=== PATIENT | female | born 1950 | race Caucasian/White ===

== ENCOUNTER 2016-10-15 16:08 | Observation (INO) | payer OTHER ==
--- NOTE | ~2016-10-15 | HP ---
History And Physical [place] [address] [facility] [place] [place]. [address] NAME: STAR NG : 50 STATUS : ADM Tasia PAT#: [id number] AGE: 65 ADM/REG DATE : 10/15/16 MR#: [id number] REPORT SERV DATE: 10/15/16 DICTATED BY: CRISS LAMAR DATE: 10/15/16 REPORT STATUS : Draft TRANSCRIBED BY: MODSukhjinder DATE: 10/15/16 DATE OF ADMISSION: 10/15/2016 POINT OF ENTRY: [facility] Emergency Department. CHIEF COMPLAINT: Nausea, vomiting, confusion, headache. HISTORY OF PRESENT ILLNESS: Ms. Ng is a 65-year-old female with history of hypertension, hypothyroidism, qgl-slqcxup-wsfgkvabq diabetes mellitus type 2, as well as chronic kidney disease, stage 2 to stage 3 who presents to the emergency department today with the above- mentioned complaints of headaches, nausea, vomiting, confusion, and generally not feeling well. The patient states that she was outside doing yard work for most of the day yesterday. She took very frequent breaks to rehydrate, but states that she did lose a lot of fluids via perspiration and feels as if she did get overheated. Upon completion of her yard work, she went inside and started to feel sick, described as weakness, some confusion, disorientation, as well as nausea, vomiting, and some headaches. She continued to try to hydrate herself overnight but feels as if her symptoms worsened prompting her presentation to the emergency department. The patient also reports that she does feel that she is having trouble getting some of her words out and trying to communicate and express what she is thinking and wanting to say, but otherwise, denies any blurry vision, slurred speech, weakness, numbness, tingling or facial droop. Initial evaluation in the emergency department for labs notable for sodium level 125. Labs are otherwise unremarkable. Urinalysis is without evidence of infection but does have spec gravity is 1.001. CT of the abdomen and pelvis was unremarkable. CT scan of the brain read is pending at the time of dictation, but per my review shows no acute stroke. The patient was given some IV fluids, antiemetics, and admitted to the Hospitalist Service. REVIEW OF SYSTEMS: Comprehensive system otherwise negative unless listed in history present illness. PREVIOUS MEDICAL HISTORY: 1. Sez-gnemobi-ujxlbcibz diabetes mellitus type 2. 2. Hypertension. 3. Hypothyroidism. 4. History of melanoma, status post resection. 5. Chronic kidney stage 2 to stage 3. Baseline creatinine unknown. PAST SURGICAL HISTORY: 1. Tubal ligation. 2. Abdominal hysterectomy. 3. Cholecystectomy. History And Physical [address] [place]. [address] NAME: STAR NG : 50 STATUS : ADM Tasia PAT#: [id number] AGE: 65 ADM/REG DATE : 10/15/16 MR#: [id number] REPORT SERV DATE: 10/15/16 DICTATED BY: CRISS LAMAR DATE: 10/15/16 REPORT STATUS : Draft TRANSCRIBED BY: DAYANARA DATE: 10/15/16 4. Right hemicolectomy with ileocolonic anastomosis secondary to Hirschsprung disease. ALLERGIES: MORPHINE. HOME MEDICATIONS: 1. Aspirin 81 mg daily. 2. Atorvastatin 10 mg at bedtime. 3. Invokana 100 mg daily. 4. Exenatide 2 mg subcu weekly. 5. Levothyroxine 75 mcg daily. 6. Lisinopril 40 mg at bedtime. 7. Metformin 850 mg b.i.d. SOCIAL HISTORY: Denies any tobacco, alcohol, or illicits. FAMILY MEDICAL HISTORY: Mother with stroke, father with coronary artery disease. She is an only child. LABS AND IMAGIN. White count is 8.5, hemoglobin is 13.5, hematocrit is 38.6, and platelet count 328. 2. Sodium is 125, potassium 4.2, chloride 93, carbon dioxide 25, BUN 11, creatinine 1.00, glucose is 123, calcium is 8.7, protein 7.5, albumin 3.9, bilirubin is 0.4. ALT is 18, AST 15, alkaline phosphatase is 58. 3. Lipase is 358. 4. CPK is 257. Troponin is less than 0.02. 5. Urinalysis: Specific gravity is 1.001. Positive glucose but no evidence of any infection. Her CT scan of the abdomen and pelvis shows a small umbilical hernia. Otherwise, no acute abdominopelvic pathology. 6. EKG, per my review shows right bundle-branch block with normal sinus rhythm, but otherwise, no evidence of any acute ischemia infarction. 7. CT scan of the brain per my review shows no acute stroke or intracranial abnormality but formal Radiology report is pending at the time of dictation. PHYSICAL EXAMINATION: VITAL SIGNS: Temperature is 98.1 degrees Fahrenheit, pulse is 84, respirations 18, saturating 98% on room air, blood pressure 141/76. GENERAL: The patient is awake, alert, in no acute distress. Resting comfortably. She is a well-developed, well-nourished, female. HEENT: Atraumatic and normocephalic. Moist mucous membranes. Pupils are equal, round, reactive to light and accommodation. Extraocular eye movements are intact. No scleral icterus. NECK: No jugular venous distention. No carotid bruits. CARDIAC: Regular rate and rhythm. No murmurs or gallops. Normal S1, S2. LUNGS: Clear to auscultation bilaterally. No wheezes, rhonchi, or crackles. ABDOMEN: Soft, nontender, nondistended. Good bowel sounds. No rebound, guarding, or rigidity. EXTREMITIES: Warm and well perfused. No cyanosis, clubbing, or edema. SKIN: Warm and dry. History And Physical [address] [address] NAME: STAR NG : 50 STATUS : ADM Tasia PAT#: [id number] AGE: 65 ADM/REG DATE : 10/15/16 MR#: [id number] REPORT SERV DATE: 10/15/16 DICTATED BY: CRISS LAMAR DATE: 10/15/16 REPORT STATUS : Draft TRANSCRIBED BY: DAYANARA DATE: 10/15/16 PSYCH: Affect is appropriate. NEURO: Alert and oriented x3. Cranial nerves 2 through 12 are grossly intact. Speech is normal. Gait is not assessed. ASSESSMENT AND PLAN: Ms. Ng is a 65-year-old female who presents with headaches, confusion, nausea, vomiting, and generally feeling unwell and found to have evidence of hyponatremia. PROBLEM LIST: 1. Symptomatic hyponatremia. 2. Expressive aphasia concerning for possible stroke versus TIA. 3. Likely heatstroke. 4. Poc-ozvdivz-ozinospmq diabetes mellitus type 2. 5. Hypertension. 6. Hypothyroidism. PLAN: 1. Symptomatic hyponatremia. I suspect the majority of the patient's symptoms are due to either symptomatic hyponatremia and/or effects of heatstroke. We will check urine lytes, serum osmolality, thyroid function studies as well as cortisol level. Given the patient's very dilute urine, I suspect that some of her hyponatremia is due to aggressive fluid resuscitation with hypotonic fluids. We will place her on fluid restriction as well as absolute free water restriction, provide IV fluid hydration, and continue to monitor her sodium levels. 2. Expressive aphasia concerning for stroke. The patient does report some trouble getting her words out, concerning for expressive aphasia which I cannot easily attributes her hyponatremia, therefore we will admit her for possible TIA versus stroke. CT scan of the brain per my review is unremarkable, but radiology report is pending. We will also schedule her for MRI in the morning as well as remainder of her stroke workup pathway. 3. Sfp-joypkbe-ypuesvlgz diabetes mellitus type 2, holding patient's oral hypoglycemics, placed her on level 2 sliding scale. 4. Hypertension, give patient's home antihypertensive. 5. DVT prophylaxis, Lovenox subcu. CODE STATUS: The patient to be full code. JCB/MODL Criss Lamar MD / [id number] CC: Pete Deal M.D.
--- NOTE | ~2016-10-15 | CN ---
Consultation Report [facility] [address] [place]. [address] NAME: STAR NG : 50 STATUS : ADM Tasia PAT#: [id number] AGE: 65 ADM/REG DATE : 10/15/16 MR#: [id number] REPORT SERV DATE: 10/16/16 DICTATED BY: DATE: REPORT STATUS : Draft TRANSCRIBED BY: MODL DATE: 10/16/16 NEUROLOGY CONSULTATION DATE OF CONSULTATION: 10/16/2016 REASON FOR CONSULTATION: Evaluate for TIA. HISTORY OF PRESENT ILLNESS: This is a 65-year-old female who presented to [facility] secondary to nausea, vomiting, confusion, as well as headache. The patient was out, working in the yard most of 10/15/2016 and was noted to be perspiring heavily. The patient drinks plenty of fluids, but denies any salt intake. The patient reports feeling headache as well as alternating between hot and cold and was noted to have some confusion, difficulty getting words, as well as nausea and vomiting. As a result, the patient presented to [facility] for further evaluation. Upon hospital arrival, the patient was noted to have hyponatremia and was given medication for nausea and vomiting. Afterwards, the patient reports symptom improvement. Reports mild headache this morning, but otherwise no current headache. The patient reports some generalized weakness upon hospital presentation, but denies any weakness. Right now, denies any gait abnormalities. The patient denies any dysarthria or dysphagia. Reports improvement of symptom, but not complete resolution. The patient prior to the event denies any recent fever, chills, nausea, vomiting, chest pain, shortness of breath, and denies any recent illness. The patient denies any recent changes in medication. PAST MEDICAL HISTORY: Significant for diabetes as well as hypertension, hypothyroidism, history of melanoma, status post resection, chronic kidney disease. REVIEW OF SYSTEMS: Negative except for those mentioned in the HPI. ALLERGIES: THE PATIENT REPORTS ALLERGY TO MORPHINE. HOME MEDICATIONS: Consist of 81 mg aspirin, atorvastatin, Invokana, exenatide, as well as levothyroxine, lisinopril, and metformin. The patient denies tobacco, alcohol, or recreational drug usage. FAMILY HISTORY: Significant for stroke, coronary artery disease. PHYSICAL EXAMINATION: VITAL SIGNS: At the time of evaluation, the patient was noted to have vital signs with T- max of 98.5, heart rate of 71 to 88, respirations of 14 to 19, and blood pressure of 106 to 130 over 55 to 65. GENERAL: The patient is well developed, well nourished, in no acute distress. CARDIOVASCULAR: Regular rate and rhythm. No carotid bruits were otherwise auscultated. PULMONARY: Clear to auscultation bilaterally. Consultation Report [id number] [place]. [address] NAME: STAR NG : 50 STATUS : ADM Tasia PAT#: [id number] AGE: 65 ADM/REG DATE : 10/15/16 MR#: [id number] REPORT SERV DATE: 10/16/16 DICTATED BY: DATE: REPORT STATUS : Draft TRANSCRIBED BY: MODL DATE: 10/16/16 NEUROLOGICAL EXAMINATION: Generally, the patient is alert and oriented x3. Follows simple and 2-step commands. No dysarthria. No aphasia was otherwise noted. Intact registration and recall. Cranial nerves 2 through 12: Pupils are equal, round, and reactive to light. Extraocular eye movement was noted to be intact with intact peripheral vision. The patient was noted to have symmetrical facial expression and sensation. Midline tongue. Normal palatal movement. Normal hearing. 5/5 bilateral upper and lower extremity strength. Normal muscle, bulk, and tone. Normal ftjtcg-lu-bpqg examination without ataxia. Normal sensation bilaterally, symmetrical. Deep tendon reflex was otherwise 2+ throughout. The patient demonstrated normal station and normal gait. LABORATORY STUDIES: Demonstrated white blood cell count of 8.5, hemoglobin of 13.5, hematocrit of 38.6, and platelet count of 328. Chemistry panel: Sodium 139, potassium of 4.0, chloride 107, bicarb 26, BUN of 9, creatinine 0.97, glucose of 146, calcium of 8.1. The patient was noted to have a serum INR of 1.0. Cholesterol of 147, HDL of 65, LDL of 50, and triglyceride of 161. Ammonia level 24. CPK of 215. The patient was noted to have serum folate of 14.4, vitamin B12 of 977. TSH of 1.41, free T4 of 1.14. AM cortisol level of 11.2. Hemoglobin A1c of 5.9. Urinalysis demonstrated negative leukocyte esterase, negative nitrite. CT scan of the brain demonstrated no acute process with the patient's MRI of the brain report pending, but otherwise no acute process was seen. IMPRESSION: 1. Headache. 2. Confusion, symptoms improved. The patient denies any current headache and no fever since the hospital admission. MRI of the brain otherwise demonstrated no acute events. Radiology report is pending. Concern for possible stroke with hyponatremia as well as mild metformin toxicity causing the patient's symptoms. We will check procalcitonin level and we will monitor. If the headache recurs, we will consider lumbar puncture. Otherwise, echocardiogram is pending. We will increase the patient's aspirin to 325 mg p.o. daily. RECOMMENDATIONS: 1. Increase aspirin to 325 mg p.o. daily. 2. Procalcitonin level with morning labs. 3. Echocardiogram pending. 4. We will follow up MRI of the brain report. [facility]/MODL Manuel Brannon MD / [id number] Consultation Report [address] [address] NAME: STAR NG : 50 STATUS : ADM Tasia PAT#: [id number] AGE: 65 ADM/REG DATE : 10/15/16 MR#: [id number] REPORT SERV DATE: 10/16/16 DICTATED BY: DATE: REPORT STATUS : Draft TRANSCRIBED BY: MODL DATE: 10/16/16 CC: Shannon Manzo M.D.
--- NOTE | ~2016-10-15 | DS ---
Discharge Summary [place] [id number] [facility] [place]. [address] NAME: STAR NG : 50 STATUS : DIS Tasia PAT#: [id number] AGE: 65 ADM/REG DATE : 10/15/16 MR#: [id number] REPORT SERV DATE: 10/18/16 DICTATED BY: DATE: REPORT STATUS : Draft TRANSCRIBED BY: MODL DATE: 10/17/16 ADMISSION DATE: 10/15/2016 DISCHARGE DATE: 10/17/2016 DISCHARGE DIAGNOSES: 1. Hyponatremia. 2. Diabetes mellitus type 2. 3. Hypertension. 4. Hypothyroid. 5. Chronic kidney disease stage 3. CONSULTATIONS: Dr. Brannon with Neurology. PROCEDURES AND IMAGIN. 10/15/2016, CT of the abdomen and pelvis without contrast showed no acute abnormality of the abdomen and pelvis. Small fat containing umbilical hernia. 2. 10/15/2016, CT of the brain without contrast showed no acute CVA or other acute intracranial pathology. Small 3 mm prominent perivascular space or old lacunar infarct inferior left basal ganglia. 3. 10/15/2016, portable chest x-ray showed no acute cardiopulmonary disease. 4. 10/16/2016, MRI of the brain showed no acute CVA or other acute intracranial pathology. Unremarkable MRI of the brain. HOSPITAL COURSE: Please refer to Dr. Fausto Elliott's H and P on 10/15/2016 for complete details regarding the patient's admission. In brief, the patient was admitted by Dr. Elliott for initial workup of nausea, vomiting, confusion, and headache. The patient had been working outside and got very dehydrated. Upon completion of her yard work, she started to feel sick, had some confusion, disorientation, weakness, as well as nausea, vomiting, and headaches. The patient also had problems with word finding. During her stay, the patient has not had any problems with weakness or speech. Denies any episodes of confusion. The patient was found to have hyponatremia with her sodium being 125, potassium 4.5, chloride 93, carbon dioxide 25, BUN 11, creatinine 1.0, glucose 123, calcium 8.7. Protein 7.5, albumin 3.9, bilirubin 0.4, ALT 18, AST 15, alkaline phosphatase is 58. Troponins have been less than 0.02. TSH is 1.41. On urinalysis, her specific gravity was 1.001. The patient has had progressive hydration and p.o. fluid restriction and her current labs are sodium 142, potassium 4.1, chloride 110, BUN 12, creatinine 1.03. GFR 66, glucose 112. WBC 7.1, hemoglobin 12.1, hematocrit 36.4. Her procalcitonin has been less than 0.05. PHYSICAL EXAMINATION: GENERAL: The patient states feeling much better, has been ambulating in the [place] way. Denies any speech dysfunction. States thought processes are clear. VITAL SIGNS: Blood pressure is 125/60, O2 saturation is 99% on room temperature is 98.4, respirations are 21, heart rate is 87. HEENT: Head is atraumatic, normocephalic. Pupils are equal, round, and reactive to light Discharge Summary [address] [address] NAME: STAR NG : 50 STATUS : DIS Tasia PAT#: [id number] AGE: 65 ADM/REG DATE : 10/15/16 MR#: [id number] REPORT SERV DATE: 10/18/16 DICTATED BY: DATE: REPORT STATUS : Draft TRANSCRIBED BY: MODL DATE: 10/17/16 and accommodation. No xanthelasma. Sclerae are clear and nonicteric. Good dentition. NECK: Supple with no palpable lymphadenopathy or thyromegaly. Neck veins are flat. CARDIAC: The patient has no obvious murmurs, rubs, or bruits. S1 and S2 with no S3, S4. LUNGS: Lungs are clear to auscultation with normal respiratory effort. GI: Abdomen is soft and nontender with active bowel sounds in all four quadrants. Normal bowel habitus. No palpable organomegaly. EXTREMITIES: No significant edema, clubbing, or cyanosis. Dorsalis pedis and posterior tibial pulses are palpable bilaterally. MUSCULOSKELETAL: Moves all extremities x4. She is ambulatory without assistance. No difficulties with balance. SKIN: Skin is warm and dry, intact, normal color and turgor. NEUROPSYCH: The patient is alert and oriented x4, pleasant cooperative. Cranial nerves II through XII are grossly intact. DISCHARGE MEDICATIONS: Aspirin 81 mg daily, Lipitor 10 mg daily, levothyroxine 75 mcg daily, Prinivil 40 mg daily, metformin 850 mg with breakfast and supper, Invokana 100 mg daily, Bydureon extend release injection 2 mg subcu q. 7 days. ALLERGIES: THE PATIENT IS ALLERGIC TO MORPHINE FOR WHICH SHE HAS ANXIETY. FOLLOWUP: The patient is to follow up with her PCP in 7 to 10 days. Should the patient have anymore symptoms of confusion, visual loss, or unusual weakness, she is to call her PCP or present to the ER. Approximately 25 minutes has been spent coordinating discharge care of this patient including ltgk-kw-zirg encounter and summarization of the discharge. The patient has also been instructed that she is to be using Gatorade or some other sodium containing drink when having excessive dehydration outside. DICTATED BY: Jo Oviedo NP S[facility]/MODL Jo Oviedo NP / [id number] CC: Jose Shultz M.D. Joseph Watlington, M.D.
[~2016-10-15 16:08] MED LIST: B COMPLETE PO; BEN25 PO; FISH OIL1200 MG PO; GLUCPH8 PO; JANUVIA100 MG PO; LISINOPRIL40 MG PO; RED YEAS1 OR; STARLIX120 PO; SYN.05 PO; VITAMIN B-121000 MC1 IM
[2016-10-15 16:34] LABS: A/G RATIO 1.1 (0.7-1.9); ALBUMIN 3.9 G/DL (3.5-5.0); ALKALINE PHOSPHATASE 58 U/L (45-117); CO2 (CARBON DIOXIDE) 25 MMOL/L (24-34); GFR AFRICAN AMERICAN 68 ML/MIN (>=60); GFR NON AFRICAN AMERICAN 59 ML/MIN (>=60); GLOBULIN 3.6 G/DL (2.5-4.1); GLUCOSE, SERUM 123 MG/DL (60-99); POTASSIUM, SERUM 4.2 MMOL/L (3.5-5.3); SGOT(AST) 15 U/L (5-40); SGPT(ALT) 18 U/L (5-65); TOTAL BILIRUBIN 0.4 MG/DL (0-1.2); TOTAL PROTEIN 7.5 G/DL (6.0-8.5)
[2016-10-15 16:36] LABS: BASOPHILS 0.1 %; BASOPHILS ABSOLUTE 0.01 10/3/uL (0.0-0.16); BUN (BLOOD UREA NITROGEN) 11 MG/DL (6-23); CALCIUM, SERUM 8.7 MG/DL (8.5-10.4); CHLORIDE, SERUM 93 MMOL/L (96-112); EOSINOPHILS 0.5 %; EOSINOPHILS ABSOLUTE 0.04 10/3/uL (0.0-0.53); ER CBC TAT 0 Hrs 21 Mins; IMMATURE GRANULOCYTES 0.1 %; IMMATURE GRANULOCYTES ABSOLUTE 0.01 10/3/uL (0.0-0.11); LYMPHOCYTES 24.5 %; LYMPHOCYTES ABSOLUTE 2.09 10/3/uL (0.67-4.30); MEAN CORPUSCULAR HEMOGLOB 30.8 pg (26.0-34.0); MEAN CORPUSCULAR VOLUME 88.1 fL (80-100); MEAN PLATELET VOLUME 9.1 fL (9.2-13.0); MONOCYTES 6.3 %; MONOCYTES ABSOLUTE 0.54 10/3/uL (0.21-1.20); NEUTROPHILS 68.5 %; NEUTROPHILS ABSOLUTE 5.85 10/3/uL (2.02-8.40); PLATELET COUNT 328 10/3/uL (150-400); RBC DISTRIBUTION WIDTH 12.5 % (12.0-16.0); RED CELL COUNT 4.38 10/6/uL (4.0-5.6); SODIUM, SERUM 125 MMOL/L (135-148); WHITE BLOOD CELLS 8.5 10/3/uL (4.5-10.5)
[2016-10-15 16:39] LABS: HEMATOCRIT 38.6 % (36.0-48.0); HEMOGLOBIN 13.5 g/dL (12.0-16.0); MANUAL DIFF NO %
[2016-10-15 17:03] LABS: CPK 257 U/L (0-200); TROPONIN I <0.02 NG/ML (<0.05)
[2016-10-15 17:04] LABS: ASCORBIC ACID (UR NOT ORDER) NEG (NEG); BILIRUBIN, URINE NEGATIVE (NEG); ER URINALYSIS TAT 0 Hrs 21 Mins; KETONE, URINE NEGATIVE (NEG); LEUKOCYTE ESTERASE(NOT OR NEG (NEG); NITRITE (URINE) NEG (NEG); WBC (NOT ORDERED) (RFLEX) < 1 (0-5)
[2016-10-15] MEDS ORDERED: BYDUREON2 MG SQ (19:52)
[2016-10-15] MEDS ORDERED: INVOKANA100 MG PO (19:52)
[2016-10-15] MEDS ORDERED: GLUCPH8 PO (19:52)
[2016-10-15] MEDS ORDERED: LISINOPRIL40 MG PO (19:52)
[2016-10-15] MEDS ORDERED: SYN075 PO (19:53)
[2016-10-15] MEDS ORDERED: LIPITOR10 PO (19:53)
[2016-10-15] MEDS ORDERED: HALF81 PO (19:53)
[2016-10-16 00:51] LABS: PARTIAL THROMBO TIME 30.6 SEC (22.5-37.2); PROTIME (NOT ORD) 13.4 SEC (12.0-14.5)
[2016-10-16 01:12] LABS: B NATRIURETIC PEPTIDE (BNP) 54.2 PG/ML (< 100.0)
[2016-10-16 01:20] LABS: BUN (BLOOD UREA NITROGEN) 10 MG/DL (6-23); CHLORIDE, SERUM 97 MMOL/L (96-112); CO2 (CARBON DIOXIDE) 25 MMOL/L (24-34); CPK (IF ELEVATED MB BANDS) 215 U/L (0-200); CREATININE 0.91 MG/DL (0.55-1.02); FREE T4 1.14 NG/DL (0.76-1.46); GFR AFRICAN AMERICAN 77 ML/MIN (>=60); GFR NON AFRICAN AMERICAN 66 ML/MIN (>=60); GLUCOSE, SERUM 113 MG/DL (60-99); HDL CHOLESTEROL 65 MG/DL (> 49); POTASSIUM, SERUM 3.5 MMOL/L (3.5-5.3); SODIUM, SERUM 128 MMOL/L (135-148); TROPONIN I <0.02 NG/ML (<0.05)
[2016-10-16 01:22] LABS: CHOL/HDL RATIO(NOT ORDER) 2.3 (0-5); CHOLESTEROL 147 MG/DL (< 200); FOLATE 14.4 NG/ML (>5.2); LDL CHOLESTEROL 50 MG/DL (< 130); NON-HDL CHOLESTEROL 82 MG/DL (< 160); TRIGLYCERIDE 161 MG/DL (< 150)
[2016-10-16 01:47] LABS: CK-MB 1.9 NG/ML
[2016-10-16 07:14] LABS: GLYCOHEMOGLOBIN (HbA1c) 5.9 % (4.7-6.1)
[2016-10-16 08:48] LABS: BUN (BLOOD UREA NITROGEN) 9 MG/DL (6-23); CALCIUM, SERUM 8.1 MG/DL (8.5-10.4); CHLORIDE, SERUM 107 MMOL/L (96-112); CO2 (CARBON DIOXIDE) 26 MMOL/L (24-34); CREATININE 0.97 MG/DL (0.55-1.02); GFR AFRICAN AMERICAN 71 ML/MIN (>=60); GFR NON AFRICAN AMERICAN 61 ML/MIN (>=60); GLUCOSE, SERUM 146 MG/DL (60-99); SODIUM, SERUM 139 MMOL/L (135-148)
[2016-10-16 14:10] LABS: BUN (BLOOD UREA NITROGEN) 9 MG/DL (6-23); CALCIUM, SERUM 8.7 MG/DL (8.5-10.4); CHLORIDE, SERUM 108 MMOL/L (96-112); CO2 (CARBON DIOXIDE) 26 MMOL/L (24-34); CREATININE 0.98 MG/DL (0.55-1.02); GFR AFRICAN AMERICAN 70 ML/MIN (>=60); GFR NON AFRICAN AMERICAN 61 ML/MIN (>=60); GLUCOSE, SERUM 103 MG/DL (60-99); POTASSIUM, SERUM 4.2 MMOL/L (3.5-5.3); SODIUM, SERUM 142 MMOL/L (135-148)
[2016-10-16 19:47] LABS: BUN (BLOOD UREA NITROGEN) 10 MG/DL (6-23); CALCIUM, SERUM 8.4 MG/DL (8.5-10.4); CHLORIDE, SERUM 109 MMOL/L (96-112); CO2 (CARBON DIOXIDE) 29 MMOL/L (24-34); CREATININE 1.06 MG/DL (0.55-1.02); GFR AFRICAN AMERICAN 64 ML/MIN (>=60); GFR NON AFRICAN AMERICAN 55 ML/MIN (>=60); GLUCOSE, SERUM 94 MG/DL (60-99); POTASSIUM, SERUM 4.5 MMOL/L (3.5-5.3); SODIUM, SERUM 143 MMOL/L (135-148)
[2016-10-17 05:35] LABS: BUN (BLOOD UREA NITROGEN) 12 MG/DL (6-23); CALCIUM, SERUM 8.3 MG/DL (8.5-10.4); CHLORIDE, SERUM 110 MMOL/L (96-112); CO2 (CARBON DIOXIDE) 27 MMOL/L (24-34); CREATININE 1.03 MG/DL (0.55-1.02); GFR AFRICAN AMERICAN 66 ML/MIN (>=60); GFR NON AFRICAN AMERICAN 57 ML/MIN (>=60); GLUCOSE, SERUM 112 MG/DL (60-99); POTASSIUM, SERUM 4.1 MMOL/L (3.5-5.3); SODIUM, SERUM 142 MMOL/L (135-148)
[2016-10-17 05:41] LABS: BASOPHILS 0.6 %; BASOPHILS ABSOLUTE 0.04 10/3/uL (0.0-0.16); EOSINOPHILS 4.1 %; EOSINOPHILS ABSOLUTE 0.29 10/3/uL (0.0-0.53); HEMATOCRIT 36.4 % (36.0-48.0); HEMOGLOBIN 12.1 g/dL (12.0-16.0); LYMPHOCYTES 41.6 %; LYMPHOCYTES ABSOLUTE 2.93 10/3/uL (0.67-4.30); MANUAL DIFF NO %; MEAN CORPUS HGB CONC 33.2 g/dL (32.0-36.0); MEAN CORPUSCULAR HEMOGLOB 30.4 pg (26.0-34.0); MEAN CORPUSCULAR VOLUME 91.5 fL (80-100); MONOCYTES 9.6 %; MONOCYTES ABSOLUTE 0.68 10/3/uL (0.21-1.20); NEUTROPHILS 44.1 %; NEUTROPHILS ABSOLUTE 3.11 10/3/uL (2.02-8.40); PLATELET COUNT 250 10/3/uL (150-400); RED CELL COUNT 3.98 10/6/uL (4.0-5.6); WHITE BLOOD CELLS 7.1 10/3/uL (4.5-10.5)
[2016-10-17 06:11] LABS: PROCALCITONIN <0.05 ng/mL (<0.5)
== END 2016-10-17 14:34 | disposition home or self-care (01) ==
LOC: ER 16:08 → CDU1 21:33 → CDU2 22:13
PROVIDERS: Internal Medicine; Nurse Practitioner
DX: E87.1 Hypo-osmolality and hyponatremia (principal); R47.01 Aphasia; T67.0XXA Heatstroke and sunstroke, initial encounter; I12.9 Hypertensive chronic kidney disease with stage 1 through stage 4 chronic kidney disease, or unspecified chronic kidney disease; E11.22 Type 2 diabetes mellitus with diabetic chronic kidney disease; N18.3 Chronic kidney disease, stage 3 (moderate); E03.9 Hypothyroidism, unspecified; Z85.820 Personal history of malignant melanoma of skin; Z98.51 Tubal ligation status; Z90.710 Acquired absence of both cervix and uterus; Z90.49 Acquired absence of other specified parts of digestive tract; Z82.3 Family history of stroke; Z82.49 Family history of ischemic heart disease and other diseases of the circulatory system; Z79.82 Long term (current) use of aspirin; Z79.84 Long term (current) use of oral hypoglycemic drugs; Z79.899 Other long term (current) drug therapy
CPT/HCPCS: 70450; 70544; 70547; 70551-52; 71010; 74176; 80048; 80053; 80061; 81001; 82140; 82533; 82550; 82553; 82607; 82746; 82962; 83036; 83690; 83735; 83880; 83930; 84145; 84439; 84443; 84484; 85025; 85610; 85730; 93005; 93306; 96372; 96374; 96375; 99285; A9270-GY; G0378; J1170; J2405